=== PATIENT | male | born 1940 | race Caucasian/White ===

== ENCOUNTER 2019-07-05 14:05 | Emergency (ER) | payer MEDICARE | END 2019-07-05 14:59 | disposition home or self-care (01) | LOC: EDH 14:05 | DX: S00.86XA Insect bite (nonvenomous) of other part of head, initial encounter (principal); S10.86XA Insect bite of other specified part of neck, initial encounter; S40.861A Insect bite (nonvenomous) of right upper arm, initial encounter; W57.XXXA Bitten or stung by nonvenomous insect and other nonvenomous arthropods, initial encounter; Y93.89 Activity, other specified; Y92.098 Other place in other non-institutional residence as the place of occurrence of the external cause; Y99.8 Other external cause status ==

== ENCOUNTER 2019-10-06 14:12 | Emergency (ER) | payer MEDICARE ==
[2019-10-06 15:17] LABS: BASOPHILS % (AUTO) 0.5 % (0.0-5.0); EOSINOPHILS % (AUTO) 2.5 % (0.0-8.0); HEMATOCRIT 40.3 % (42-54); LYMPHOCYTES % (AUTO) 17.6 % (21.0-51.0); MEAN CORPUSCULAR HEMOGLOBIN 31.6 pg (27.0-33.0); MEAN CORPUSCULAR HGB CONC 34.5 g/dL (32.0-36.0); MEAN CORPUSCULAR VOLUME 91.6 fL (79-99); MONOCYTES % (AUTO) 11.9 % (3.0-13.0); NEUTROPHILS % (AUTO) 66.9 % (40.0-77.0); PLATELET COUNT (AUTO) 207 K/uL (130-400); RED CELL DISTRIBUTION WIDTH 12.4 % (11.0-15.5); WHITE BLOOD COUNT (AUTO) 10.6 K/uL (4.8-10.8)
[2019-10-06] MEDS ORDERED: IPRATROPIUM/ALBUTEROL SULFATE 3 ML SOLUTION IH ONE (15:21)
[2019-10-06 15:27] LABS: POTASSIUM 3.8 mmol/L (3.5-5.1)
[2019-10-06 15:29] LABS: INR 1.09 (0.85-1.15); PARTIAL THROMBOPLASTIN TIME 27.5 SEC (26.3-35.5); PROTHROMBIN TIME 11.4 SEC (9.6-11.6)
[2019-10-06 15:31] LABS: ALBUMIN 3.1 g/dL (3.5-5.0); BILIRUBIN,TOTAL 0.6 mg/dL (0.2-1.0); TOTAL PROTEIN, SERUM 7.2 g/dL (6.0-8.3)
[2019-10-06] MEDS ORDERED: CEFTRIAXONE SODIUM 1 GM ONE (15:34)
[2019-10-06] MEDS ORDERED: AZITHROMYCIN 250 MG TABLET PO ONE (15:35)
[2019-10-06 15:36] LABS: B-TYPE NATRIURETIC PEPTIDE 378 pg/mL (0-100)
[2019-10-07] MEDS ORDERED: SIMV40TA59 PO (21:27)
[2019-10-08] MEDS ORDERED: OMEP20TA25 PO (18:04)
[2019-10-08] MEDS ORDERED: AEC81 PO (18:04)
[2019-10-08] MEDS ORDERED: FINA5TAB41 PO (18:04)
== END 2019-10-06 16:49 | disposition home or self-care (01) ==
LOC: EDH 14:12
DX: J18.9 Pneumonia, unspecified organism (principal); I50.9 Heart failure, unspecified; I25.10 Atherosclerotic heart disease of native coronary artery without angina pectoris
CPT/HCPCS: 36415; 71045; 80053; 82550; 83605; 83880; 84484; 85025; 85610; 85730; 87040 ×2; 87804 ×2; 93005; 94640; 96374; 99285; J0696